=== PATIENT | female | born 1975 | race Caucasian/White ===

== ENCOUNTER → 2024-05-03 | Outpatient (CLI) | payer MEDICAID, SELFPAY ==
--- NOTE | 2024-05-03 16:51 | XR_ITS ---
Examination: PA lateral chest 2 views Technique: Upright PA lateral chest 2 views Exam date and time: May 03, 2024 at 1725 hrs. Indications: Coughing shortness of breath beginning 3 weeks ago. Findings: Normal heart size. Lungs are clear. The osseous structures are intact Impression: No active disease
== END | disposition home or self-care (01) ==
PROVIDERS: PCP Internal Medicine; Referring Provider Internal Medicine; Visit Provider Internal Medicine
DX: R05.9 Cough, unspecified (principal); R06.02 Shortness of breath
CPT/HCPCS: 71046

== ENCOUNTER → 2024-06-26 | Outpatient (CLI) | payer MEDICAID, SELFPAY ==
--- NOTE | 2024-06-26 13:15 | XR_ITS ---
Examination: Screening digital mammography, bilateral Computer aided detection 3-D breast Tomosynthesis, bilateral Date and time of exam: June 26, 2024 1337 hours Compared to mammograms dating to April 30, 2016 Indication: Screening Technique: Nonmagnified MLO, CC views of the breasts to been obtained, reconstructed from 3-D Tomosynthesis images. R2 computer aided detection program utilized for evaluation of suspicious masses and/or abnormal calcifications. 3-D Tomosynthesis images obtained. Findings: Scattered areas of fibroglandular density. Benign calcifications. No interval suspicious masses Impression: BI-RADS category II: Benign Findings. Recommend 1 year follow-up mammogram.
== END | disposition home or self-care (01) ==
LOC: CDIM 13:23
PROVIDERS: Referring Provider Internal Medicine; Visit Provider Internal Medicine
DX: Z12.31 Encounter for screening mammogram for malignant neoplasm of breast (principal); R92.323 Mammographic fibroglandular density, bilateral breasts; R92.1 Mammographic calcification found on diagnostic imaging of breast
CPT/HCPCS: 77063; 77067